=== PATIENT | male | born 1930 | race Caucasian/White ===

== ENCOUNTER 2016-05-08 11:50 | Observation (INO) | payer MEDICARE, OTHER ==
[2016-05-08] VITALS (10 sets, daily range): BP systolic 118–151; BP diastolic 58–89; PULSE 85–108; RESP 15–20; TEMP 98.2–98.7; O2SAT 91–95
[~2016-05-08] VITALS: Ht 182.9 cm; Wt 70.0 kg
[~2016-05-08 11:50] MED LIST: ADVAI250I PO; ATOR40TA PO; CORE6.25 PO; COUM1TAB PO; COUM2.5T PO; DIGO0.12 PO; ECOT81TA2 PO; EFFE150C PO; FURO1TAB93 PO; GLIP5TAB8 PO; LISI5 PO; NITR0.4S SL; OMEP40CA2 PO; POTA1TAB17 PO; TAMS0.4C67 PO; WELL150T PO
[2016-05-08] MEDS ORDERED: SODIUM CHLOR 0.9% 1000 ML INJ 1,000 ML IV SCH ×2 (12:43→16:45)
[2016-05-08] MEDS ORDERED: MORPHINE SULFATE 4 MG/ML INJ IV PUSH ONE (12:45)
--- NOTE | 2016-05-08 13:11 | PD ---
HPI Chief Complaint: Complaint Time Seen by Provider: 13:07 Travel History International Travel<30 days: No Contact w/Intl Traveler<30days: No Traveled to known affect area: No History of Present Illness HPI 86-year-old male that presents to the ED for evaluation of left upper quadrant pain on the abdomen as well as urinary issues. Per patient symptoms started yesterday. Patient is in hospice for unclear reasons. Patient denies any problems like this before. No chest pain or shortness of breath. Per patient she does have a history of CHF. Does not know his taking blood thinners. States that the pain is sharp many on the left upper quadrant. Denies any bowel movement issues and states that he had a bowel movement yesterday. No blood in the urine or the bowel movements. Per patient he has history and polyuria. No history of kidney stones. No allergies to medication. Has not taken anything for this. Denies any fevers chills or sweats. No nausea or vomiting. Nothing makes the pain better or worse. Per patient the pain is 8 out of 10 and is sharp. PFSH Past Medical History Hx Anticoagulant Therapy: Yes Arthritis: Yes (LUMBAR) Blood Disorders: No Depression: Yes Cancer: No Cardiovascular Problems: Yes High Cholesterol: Yes COPD: Yes Diabetes: Yes Patient Takes Glucophage: Yes Endocrine: No Gastrointestinal Disorders: No GERD: Yes Genitourinary: No Hypertension: Yes Immune Disorder: No Musculoskeletal: Yes (ARTHRITIS) Neurologic: No Psychiatric: No Reproductive: No Respiratory: Yes Tetanus Vaccination: Unknown Past Surgical History AICD: Yes Cholecystectomy: Yes Eye Surgery: Yes (BILATERAL CATHERACTS) Other Surgery: Yes (SINUS SURGERY; HEMMROIDS) Social History Alcohol Use: No Tobacco Use: No Substance Use: No Allergies-Medications (Allergen,Severity, Reaction): Coded Allergies: No Known Allergies (Verified , 05/08/16) Reported Meds & Prescriptions Reported Meds & Active Scripts Active Reported Omeprazole 20 Mg Tab 20 Mg PO DAILY Potassium Chloride ER (Potassium Chloride) 10 Meq Tab 10 Meq PO DAILY Lisinopril 5 Mg Tab 2.5 Mg PO DAILY Melatonin 1 Mg Tab 1 Mg PO HS PRN Glipizide 5 Mg Tab 5 Mg PO BID Take 30 minutes before a meal Lasix (Furosemide) 40 Mg Tab 40 Mg PO DAILY Aspirin Adult Low Strength (Aspirin) 81 Mg Tabdr 81 Mg PO DAILY Senna-Plus (Sennosides-Docusate Sodium) 8.6-50 Mg Tab 1 Tab PO BID Coreg (Carvedilol) 6.25 Mg Tab 6.25 Mg PO BID Jantoven (Warfarin) 4 Mg Tab 4 Mg PO SUMOTUWETHFR Take 1 tablet (4mg) daily except on Saturdays Advair Diskus Inh (Fluticasone-Salmeterol Inh) 250-50 Mcg/Blist Aer 1 Puff INH BID Rinse mouth after use. Review of Systems General / Constitutional: No: Fever, Chills, Weight Gain, Weight Loss, Other Eyes: No: Diploplia, Blurred Vision, Photophobia, Drainage, Redness, Foreign Body Sensation, Pain, Tearing, Blind Spots, Visual changes, Blindness, Other HENT: No: Headaches, Vertigo, Lightheadedness, Sore Throat, Rhinitis, Rhinorrhea, Congestion, Nosebleed, Neck Stiffness, Neck Pain, Masses, Gingival Bleeding, Dental Difficulties, Ear Discharge, Earache, Other Cardiovascular: No: Chest Pain or Discomfort, Palpitations, Irregular Rhythm, Tachycardia, Diaphoresis, Syncope, Dyspnea on exertion, Varicosities, Edema, Cyanosis, Varicosities, Phlebitis, Claudication, Other Respiratory: No: Cough, Shortness of Breath, Wheezing, Sneezing, Orthopnea, Hemoptysis, Stridor, Night Sweats, Pleuritic Pain, Other Gastrointestinal: Positive: Abdominal Pain, No: Nausea, Vomiting, Diarrhea, Hematemesis, Hematochezia, Constipation, Changes in Bowel Habits, Indigestion, Dysphagia, Loss of Appetite, Other Genitourinary: Positive: Urgency, Frequency, Dysuria, No: Nocturia, Hematuria , Decreased Urinary Output, Oliguria, Hesitancy, Dribbling, Incontinence, Pelvic Pain, Flank Pain, Dyspareunia, Discharge, Dysmenorrhea, Menorrhagia, Metorrhagia, Vaginal Bleeding, Other Musculoskeletal: No: Myalgias, Arthralgias, Limited ROM, Weakness, Cramping, Edema, Pain, Atrophy, Other Skin: No Rash, No Itching, No Dryness, No Lumps, No Hives, No Change in Pigmentation, No Change in nails, No Alopecia, No Lesions, No Breast Lumps, No Breast Tenderness, No Breast Swelling, No Other Neurologic: No: Weakness, Dizziness, Syncope, Focal Abnormalities, Coordination Problem, Tremor, Ataxia, Headache, Change in Mentation, Slurred Speech, Paresthesia, Incontinence, Seizures, Sensory Disturbance, Other Psychiatric: No: Anxiety, Depression, Suicidal Ideations, Disorder of Thought, Mood Disorder, Substance Abuse, Homicidal Ideation, Other Endocrine: No: Heat Intolerance, Cold Intolerance, Polyuria, Polydipsia, Other Hematologic/Lymphatic: No: Easy Bruising, Lymph Node Enlargement, Other Physical Exam Narrative GENERAL: SKIN: Warm and dry. HEAD: Atraumatic. Normocephalic. EYES: Pupils equal and round. No scleral icterus. No injection or drainage. ENT: No nasal bleeding or discharge. Mucous membranes pink and moist. Tongue is midline. No uvula deviation. NECK: Trachea midline. No JVD. CARDIOVASCULAR: Regular rate and rhythm. No murmurs, S3, S4. RESPIRATORY: No accessory muscle use. Clear to auscultation. Breath sounds equal bilaterally. GASTROINTESTINAL: Abdomen soft, tender with soft and the palpation on the left upper quadrant as well as the left lower quadrant, nondistended. Hepatic and splenic margins not palpable. MUSCULOSKELETAL: Extremities without clubbing, cyanosis, or edema. No obvious deformities. Full range of motion of the upper and lower extremities bilaterally. Pupils pulses bilaterally. NEUROLOGICAL: Awake and alert. No obvious cranial nerve deficits. Motor grossly within normal limits. Five out of 5 muscle strength in the arms and legs. Normal speech. PSYCHIATRIC: Appropriate mood and affect; insight and judgment normal. Data Data Last Documented VS Vital Signs Date Time Temp Pulse Resp B/P Pulse Ox O2 Delivery O2 Flow Rate FiO2 05/08/16 15:00 102 16 141/75 95 Room Air 05/08/16 11:53 98.7 Orders Complete Blood Count With Diff (05/08/16 12:31) Comprehensive Metabolic Panel (05/08/16 12:31) Urinalysis - C+S If Indicated (05/08/16 12:31) Iv Access Insert/Monitor (05/08/16 12:31) Lipase (05/08/16 12:31) Lactic Acid (05/08/16 12:43) Ct Abd/Pel W Iv Contrast(Rout) (05/08/16 12:43) Morphine Inj (Morphine Inj) (05/08/16 12:45) Sodium Chlor 0.9% 1000 Ml Inj (Ns 1000 M (05/08/16 12:43) Chest, Single Ap (05/08/16 ) Cath For Specimen (05/08/16 13:33) Ct Brain W/O Iv Contrast(Rout) (05/08/16 ) Troponin I (05/08/16 13:37) B-Type Natriuretic Peptide (05/08/16 13:37) Iohexol 350 Inj (Omnipaque 350 Inj) (05/08/16 14:18) Urine Culture (05/08/16 13:33) Ceftriaxone Inj (Rocephin Inj) (05/08/16 14:30) Type In Test Nurse Collected (05/08/16 12:50) Diet Diabetic (05/08/16 Dinner) Electrocardiogram (05/08/16 ) Admit Order (Ed Use Only) (05/08/16 16:21) Labs Laboratory Tests Test 05/08/16 05/08/16 05/08/16 12:50 13:33 14:10 White Blood Count 11.8 TH/MM3 Red Blood Count 3.96 MIL/MM3 Hemoglobin 11.4 GM/DL Hematocrit 33.3 % Mean Corpuscular Volume 84.2 FL Mean Corpuscular Hemoglobin 28.7 PG Mean Corpuscular Hemoglobin 34.1 % Concent Red Cell Distribution Width 14.6 % Platelet Count 187 TH/MM3 Mean Platelet Volume 8.4 FL Neutrophils (%) (Auto) 82.3 % Lymphocytes (%) (Auto) 9.3 % Monocytes (%) (Auto) 7.9 % Eosinophils (%) (Auto) 0.3 % Basophils (%) (Auto) 0.2 % Neutrophils # (Auto) 9.7 TH/MM3 Lymphocytes # (Auto) 1.1 TH/MM3 Monocytes # (Auto) 0.9 TH/MM3 Eosinophils # (Auto) 0.0 TH/MM3 Basophils # (Auto) 0.0 TH/MM3 CBC Comment DIFF FINAL Differential Comment Sodium Level 137 MEQ/L Potassium Level 4.2 MEQ/L Chloride Level 101 MEQ/L Carbon Dioxide Level 28.5 MEQ/L Anion Gap 8 MEQ/L Blood Urea Nitrogen 23 MG/DL Creatinine 1.54 MG/DL Estimat Glomerular Filtration 43 ML/MIN Rate Random Glucose 105 MG/DL Calcium Level 8.1 MG/DL Total Bilirubin 0.5 MG/DL Aspartate Amino Transf 39 U/L (AST/SGOT) Alanine Aminotransferase 21 U/L (ALT/SGPT) Alkaline Phosphatase 85 U/L Troponin I 0.10 NG/ML Total Protein 6.5 GM/DL Albumin 2.9 GM/DL Lipase 91 U/L Urine Color YELLOW Urine Turbidity HAZY Urine pH 7.5 Urine Specific [place] 1.023 Urine Protein 30 mg/dL Urine Glucose (UA) NEG mg/dL Urine Ketones NEG mg/dL Urine Occult Blood LARGE Urine Nitrite NEG Urine Bilirubin NEG Urine Urobilinogen LESS THAN 2.0 MG/DL Urine Leukocyte Esterase LARGE Urine RBC /hpf Urine WBC /hpf Urine Squamous Epithelial 1 /hpf Cells Urine Bacteria FEW /hpf Microscopic Urinalysis Comment CULTURE INDICATED Lactic Acid Level 1.5 mmol/L MDM Medical Decision Making Medical Screen Exam Complete: Yes Emergency Medical Condition: Yes Medical Record Reviewed: Yes Interpretation(s) CBC & BMP Diagram 05/08/16 12:50 Troponin elevated at 0.10. Last Impressions Head CT 05/08/16 0000 Signed Impressions: Service Date/Time: April 13:52 - CONCLUSION: No acute disease. Chronic sinus disease. Quinn Ko Jr., MD Chest X-Ray 05/08/16 0000 Signed Impressions: Service Date/Time: April 13:13 - CONCLUSION: Cardiomegaly without acute cardiopulmonary disease. Quinn Ko Jr., MD LFTs WNL UA showed signs of infection CT of the abdomen was negative. lactic acid negative Differential Diagnosis Obstruction versus diverticulitis versus UTI versus polynephritis versus kidney stone is acute on chronic pain versus chronic pain Narrative Course 86-year-old male that presents to the ED for evaluation of left upper quadrant abdominal pain with urinary issues. Patient was properly examined and was found to have signs and symptoms concerning for obstruction versus diverticulitis versus pyelonephritis. Labs and imaging ordered. Labs and imaging showed UTI, elevated troponin, BNP, WBCs. Family was at bedside after patient was moved to a medical bed. Patient was initially seen in the ambulance muñ[facility]. Family reports the patient has been somewhat more somnolent and more confused than usual. They were concern about possible heart issue versus urinary or abdominal. From physical exam and lab work is appears to be more related to the kidney infection. Patient did have an elevated troponin but this at this point feels to be likely chronic. Case was discussed in my attending Dr. Anshu who recommends admission secondary to patient's slight altered mental status as patient is in hospice care both at home. Family prefers this as well. Patient was started on ceftriaxone. Dr Vee consulted and agreed to admission. Procedures EKG Prior to Arrival: No Diagnosis Primary Impression: Altered mental status Qualified Code: R41.0 - Disorientation Additional Impressions: Cystitis Elevated troponin Admitting Information Admitting Physician Requests: Admit Clayton Walsh May 08, 2016 13:11
[2016-05-08 13:14] LABS: AUTOMATED NEUTROPHIL # 9.7 TH/MM3 (1.8-7.7); BASOPHIL % 0.2 % (0.0-2.0); EOSINOPHIL % 0.3 % (0.0-4.0); HEMATOCRIT 33.3 % (39.0-51.0); HEMO FLAGS DIFF FINAL; LYMPH % 9.3 % (9.0-44.0); LYMPHOCYTE # 1.1 TH/MM3 (1.0-4.8); MEAN CELL VOLUME 84.2 FL (80.0-100.0); MEAN CORPUSCULAR HEMOGLOBIN 28.7 PG (27.0-34.0); MEAN CORPUSCULAR HGB CONC 34.1 % (32.0-36.0); MONO % 7.9 % (0.0-8.0); NEUT % 82.3 % (16.0-70.0); PLATELET COUNT 187 TH/MM3 (150-450); RED BLOOD COUNT 3.96 MIL/MM3 (4.50-5.90); RED CELL DISTRIBUTION WIDTH 14.6 % (11.6-17.2); WHITE BLOOD COUNT 11.8 TH/MM3 (4.0-11.0)
[2016-05-08] MEDS ORDERED: POTA10TA2 PO (13:22)
[2016-05-08] MEDS ORDERED: CARV6.25 PO (13:22)
[2016-05-08] MEDS ORDERED: FURO1TAB60 PO (13:22)
[2016-05-08] MEDS ORDERED: OMEP20TA PO (13:22)
[2016-05-08] MEDS ORDERED: ADVA250A INH (13:22)
[2016-05-08] MEDS ORDERED: ASPI1TAB91 PO (13:22)
[2016-05-08] MEDS ORDERED: LISI-519 PO (13:22)
[2016-05-08] MEDS ORDERED: JANT4TAB PO (13:22)
[2016-05-08] MEDS ORDERED: SENN1TAB PO (13:22)
[2016-05-08] MEDS ORDERED: MELA1TAB PO (13:22)
[2016-05-08] MEDS ORDERED: GLIP5TAB8 PO (13:22)
[2016-05-08 13:30] LABS: ALKALINE PHOSPHATASE 85 U/L (45-117); ALT (GPT) 21 U/L (12-78); ANION GAP 8 MEQ/L (5-15); AST (GOT) 39 U/L (15-37); BICARBONATE 28.5 MEQ/L (21.0-32.0); BLOOD UREA NITROGEN 23 MG/DL (7-18); CHLORIDE 101 MEQ/L (98-107); GLOMERULAR FILTRATION RATE 43 ML/MIN (>89); SODIUM (NA) 137 MEQ/L (136-145); TOTAL BILIRUBIN ADULT 0.5 MG/DL (0.2-1.0)
[2016-05-08 13:32] LABS: POTASSIUM 4.2 MEQ/L (3.5-5.1)
--- NOTE | 2016-05-08 13:57 | RADRPT ---
EXAM DATE/TIME: 05/08/2016 13:13 [facility] COMPARISON: CHEST SINGLE AP, January 02, 2015, 16:50. INDICATIONS : Weakness and confusion. MEDICAL HISTORY : Hypertension. Hypercholesterolemia. Chronic obstructive pulmonary disease. Arthritis. Diabetes. SURGICAL HISTORY : Cholecystectomy. Difibrillator. ENCOUNTER: Initial ACUITY: 1 day PAIN SCORE: 0/10 LOCATION: Bilateral chest FINDINGS: 2 portable views of the chest show mild cardiomegaly. Aorta is mildly tortuous. Lungs are clear. No i nfiltrates or effusions. A single lead pacing device overlies the left chest. CONCLUSION: Cardiomegaly without acute cardiopulmonary disease. Quinn Ko Jr., MD on May 08, 2016 at 13:55 Board Certified Radiologist. This report was verified electronically.
[2016-05-08 14:17] LABS: BACTERIA, URINE FEW /hpf; BLOOD, URINE LARGE (NEG); COMMENT (UR) CULTURE INDICATED; CULTURE IF INDICATED CULTURE INDICATED; GLUCOSE,URINE NEG (NEG); KETONE, URINE NEG (NEG); NITRITE,URINE NEG (NEG); PH, URINE 7.5 (5.0-8.5); SQUAMOUS EPITHELIAL CELL URINE 1 /hpf (0-5); URINE COLOR YELLOW (YELLW/STRAW)
[2016-05-08] MEDS ORDERED: IOHEXOL 350 MG/ML 10 ML VIAL (for RAD DIAG) IV ONE (14:18)
--- NOTE | 2016-05-08 14:18 | RADRPT ---
EXAM DATE/TIME: 05/08/2016 13:52 [facility] COMPARISON: CT BRAIN W/O CONTRAST, January 02, 2015, 17:03. INDICATIONS : Altered mental status. RADIATION DOSE: 50.66 CTDIvol (mGy) MEDICAL HISTORY : Cardiovascular disease. Hypertension. Chronic obstructive pulmonary disease.GERD, Diabetes. SURGICAL HISTORY : Cholecystectomy. ENCOUNTER: Initial ACUITY: 1 day PAIN SCALE: 0/10 LOCATION: cranial TECHNIQUE: Multiple contiguous axial images were obtained of the head. Using automated exposure control and adj ustment of the mA and/or kV according to patient size, radiation dose was kept as low as reasonably a chievable to obtain optimal diagnostic quality images. 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 The ventricles are normal for ag e. No evidence of midline shift, mass lesion, hemorrhage or acute infarction. No extra-axial fluid collections are seen. POSTERIOR FOSSA: The cerebellum and brainstem are intact. The 4th ventricle is midline. The cerebellopontine angle i s unremarkable. EXTRACRANIAL: The visualized portion of the orbits is intact. Mucosal thickening is seen involving the bilateral fr ontal sinuses, ethmoid air cells, and maxillary sinuses. Mild mucosal thickening involving the spheno id sinuses. No air-fluid levels. Mastoid air cells are clear. SKULL: The calvaria is intact. No evidence of skull fracture. CONCLUSION: No acute disease. Chronic sinus disease. Quinn Ko Jr., MD on May 08, 2016 at 14:13 Board Certified Radiologist. This report was verified electronically.
[2016-05-08] MEDS ORDERED: cefTRIAXone INJ 1,000 MG in SODIUM CHLORIDE 0.9% INJ 25 ML IV ONE (14:30)
--- NOTE | 2016-05-08 15:02 | RADRPT ---
EXAM DATE/TIME: 05/08/2016 13:57 [facility] COMPARISON: No previous studies available for comparison. INDICATIONS : LUQ abdominal pain with frequent urination. IV CONTRAST: 75 cc Omnipaque 350 (iohexol) IV ORAL CONTRAST: No oral contrast ingested. RADIATION DOSE: 18.37 CTDIvol (mGy) MEDICAL HISTORY : Cardiovascular disease. Hypertension. Chronic obstructive pulmonary disease.GERD, Diabetes. SURGICAL HISTORY : Cholecystectomy. ENCOUNTER: Initial ACUITY: 1 day PAIN SCALE: 6/10 LOCATION: Left upper quadrant Abdomen/pelvis TECHNIQUE: Volumetric scanning of the abdomen and pelvis was performed. Using automated exposure control and ad justment of the mA and/or kV according to patient size, radiation dose was kept as low as reasonably achievable to obtain optimal diagnostic quality images. FINDINGS: LOWER LUNGS: The visualized lower lungs are clear. LIVER: Homogeneous density without lesion. There is no dilation of the biliary tree hemoclips in the kwame from prior cholecystectomy. SPLEEN: Normal size without lesion. PANCREAS: Within normal limits. KIDNEYS: Normal in size and shape. There is no mass, stone or hydronephrosis. ADRENAL GLANDS: Within normal limits. VASCULAR: There is no aortic aneurysm. BOWEL/MESENTERY: No dilated loops of small or large bowel. A few scattered diverticula in the sigmoid colon. ABDOMINAL WALL: Within normal limits. RETROPERITONEUM: There is no lymphadenopathy. BLADDER: Nondistended. Diffuse wall thickening. REPRODUCTIVE: Within normal limits. INGUINAL: There is no lymphadenopathy or hernia. MUSCULOSKELETAL: Prominent degenerative changes lumbar spine. Right lumbar scoliosis. CONCLUSION: 1. No evidence of renal stone or hydronephrosis. 2. No dilated loops of small or large bowel. Quinn Garcia MD on May 08, 2016 at 14:57 Board Certified Radiologist. This report was verified electronically.
[2016-05-08] MEDS ORDERED: MELATONIN 1 MG PO PRN (16:30)
[2016-05-08] MEDS ORDERED: GLUCAGON 1 MG/ML VIAL OTHER PRN (16:45)
[2016-05-08] MEDS ORDERED: BISACODYL 10 MG SUPP PR PRN (16:45)
[2016-05-08] MEDS ORDERED: SODIUM CHLORIDE 0.9% FLUSH 5 ML FLUSH FLUSH PRN (16:45)
[2016-05-08] MEDS ORDERED: MAGNESIUM HYDROXIDE SUSP 30 ML CUP PO PRN (16:45)
[2016-05-08] MEDS ORDERED: SENNOSIDES 8.6 MG TAB PO PRN (16:45)
[2016-05-08] MEDS ORDERED: ACETAMINOPHEN 325 MG TAB PO PRN (16:45)
[2016-05-08] MEDS ORDERED: PROCHLORPERAZINE 25 MG SUPP PR PRN (16:45)
[2016-05-08] MEDS ORDERED: DEXTROSE 50% IN WATER 50 ML VIAL(D50) IV PUSH PRN (16:45)
[2016-05-08] MEDS ORDERED: ONDANSETRON HCL 4 MG/2 ML VIAL IVP PRN (16:45)
[2016-05-08 17:57] LABS: INTERNATIONAL NORMALIZED RATIO 1.3 RATIO; PROTHROMBIN TIME - PATIENT 14.2 SEC (9.8-11.6)
[2016-05-08] MEDS ORDERED: WARFARIN SOD 4 MG TAB PO SCH (18:15)
--- NOTE | 2016-05-08 18:45 | HHI.HP ---
HPI Service [facility] Primary Care Physician No Primary Care Physician Admission Diagnosis ALtered mental status, cystitis Diagnoses: Travel History International Travel<30 Days: No Contact w/Intl Traveler <30 Da: No Traveled to Known Affected Are: No History of Present Illness Very pleasant 86 yo male with extensive PMH as mentioned below. Patient says he was at home under hospice care but he is full code, says for complicated cardiac issues he gets hospice at home . Hospice also came to evaluate the patient. Patient however came to the ED with c/o urinary frequency and chills since yesterday and wants to get treated for UTI. He also complaints of chest pain intermittent nonradiating, says chest pain is more like pressure in his chest associated with sob and also tyrese . He thinks he had a fever yesterday. No palpitations. Says she has lightheadedness but this is a chronic problem. No n/v/d/c. However says he has decreased appetite and was not able to tolerate food. Review of Systems 12 system ROS reviewed and negative except as mentioned in HPI Past Family Social History Past Medical History Systolic congestive heart failure with an left ventricular ejection fraction of 15-20% Depression Hyperlipidemia COPD Diabetes mellitus GERD Hypertension History of nonsustained ventricular tachycardia status post AICD Past Surgical History AICD Cholecystectomy Bilateral cataract surgery Sinus surgery Hemorrhoid surgery Reported Medications Reported Meds & Active Scripts Active Reported Omeprazole 20 Mg Tab 20 Mg PO DAILY Potassium Chloride ER (Potassium Chloride) 10 Meq Tab 10 Meq PO DAILY Lisinopril 5 Mg Tab 2.5 Mg PO DAILY Melatonin 1 Mg Tab 1 Mg PO HS PRN Glipizide 5 Mg Tab 5 Mg PO BID Take 30 minutes before a meal Lasix (Furosemide) 40 Mg Tab 40 Mg PO DAILY Aspirin Adult Low Strength (Aspirin) 81 Mg Tabdr 81 Mg PO DAILY Senna-Plus (Sennosides-Docusate Sodium) 8.6-50 Mg Tab 1 Tab PO BID Coreg (Carvedilol) 6.25 Mg Tab 6.25 Mg PO BID Jantoven (Warfarin) 4 Mg Tab 4 Mg PO SUMOTUWETHFR Take 1 tablet (4mg) daily except on Saturdays Advair Diskus Inh (Fluticasone-Salmeterol Inh) 250-50 Mcg/Blist Aer 1 Puff INH BID Rinse mouth after use. Allergies: Coded Allergies: No Known Allergies (Verified , 05/08/16) Family History Denies family history of strokes. Social History Patient is a former smoker who quit smoking ~ 10 years ago. He states that he also used to smoke cigars. Denies alcohol or illicit drug use and has a daughter who also has some physical impediments and home he helps take care of. Says he had hospice coming to home. Physical Exam Vital Signs Vital Signs Date Time Temp Pulse Resp B/P Pulse Ox O2 Delivery O2 Flow Rate FiO2 05/08/16 16:26 102 15 151/72 94 Room Air 05/08/16 15:00 102 16 141/75 95 Room Air 05/08/16 13:03 93 16 149/67 92 Room Air 05/08/16 13:03 93 16 05/08/16 11:53 98.7 88 19 118/58 94 Physical Exam GENERAL: This is a pleasant 86 yo male, well-nourished, well-developed patient, in no apparent distress. SKIN: No rashes, ecchymoses or lesions. Cool and dry. HEAD: Atraumatic. Normocephalic. No temporal or scalp tenderness. EYES: Pupils equal round and reactive. Extraocular motions intact. No scleral icterus. No injection or drainage. ENT: Nose without bleeding, purulent drainage or septal hematoma. Throat without erythema, tonsillar hypertrophy or exudate. Uvula midline. Airway patent. NECK: Trachea midline. No JVD or lymphadenopathy. Supple, nontender, no meningeal signs. CARDIOVASCULAR: Regular rate and rhythm without murmurs, gallops, or rubs. RESPIRATORY: Decreased breath sounds. No wheezes, rales, or rhonchi. GASTROINTESTINAL: Abdomen soft, non-tender, nondistended. No hepato-splenomegaly , or palpable masses. No guarding. MUSCULOSKELETAL: Extremities without clubbing, cyanosis, or edema. No joint tenderness, effusion, or edema noted. No calf tenderness. Negative Homans sign bilaterally. NEUROLOGICAL: Awake and alert. Cranial nerves II through XII intact. Motor and sensory grossly within normal limits. Five out of 5 muscle strength in all muscle groups. Normal speech. Laboratory Laboratory Tests Test 05/08/16 05/08/16 05/08/16 05/08/16 12:50 13:33 14:10 15:14 White Blood Count 11.8 Red Blood Count 3.96 Hemoglobin 11.4 Hematocrit 33.3 Mean Corpuscular Volume 84.2 Mean Corpuscular Hemoglobin 28.7 Mean Corpuscular Hemoglobin 34.1 Concent Red Cell Distribution Width 14.6 Platelet Count 187 Mean Platelet Volume 8.4 Neutrophils (%) (Auto) 82.3 Lymphocytes (%) (Auto) 9.3 Monocytes (%) (Auto) 7.9 Eosinophils (%) (Auto) 0.3 Basophils (%) (Auto) 0.2 Neutrophils # (Auto) 9.7 Lymphocytes # (Auto) 1.1 Monocytes # (Auto) 0.9 Eosinophils # (Auto) 0.0 Basophils # (Auto) 0.0 CBC Comment DIFF FINAL Differential Comment Sodium Level 137 Potassium Level 4.2 Chloride Level 101 Carbon Dioxide Level 28.5 Anion Gap 8 Blood Urea Nitrogen 23 Creatinine 1.54 Estimat Glomerular Filtration 43 Rate Random Glucose 105 Calcium Level 8.1 Total Bilirubin 0.5 Aspartate Amino Transf 39 (AST/SGOT) Alanine Aminotransferase 21 (ALT/SGPT) Alkaline Phosphatase 85 Troponin I 0.10 Total Protein 6.5 Albumin 2.9 Lipase 91 Urine Color YELLOW Urine Turbidity HAZY Urine pH 7.5 Urine Specific [place] 1.023 Urine Protein 30 Urine Glucose (UA) NEG Urine Ketones NEG Urine Occult Blood LARGE Urine Nitrite NEG Urine Bilirubin NEG Urine Urobilinogen LESS THAN 2.0 Urine Leukocyte Esterase LARGE Urine RBC Urine WBC Urine Squamous Epithelial 1 Cells Urine Bacteria FEW Microscopic Urinalysis Comment CULTURE INDICATED Lactic Acid Level 1.5 B-Type Natriuretic Peptide 266 Test 05/08/16 17:30 Prothrombin Time 14.2 Prothromb Time International 1.3 Ratio Troponin I 0.11 Date/Time Procedure Status Source Growth 05/08/16 13:33 Urine Culture Received Urine Clean Catch Pending Result Diagram: 05/08/16 1250 05/08/16 1250 Assessment and Plan Assessment and Plan Cardiac enzymes elevated Chest pain Ischemic cardiomyopathy Might have stable angina. Trend cardiac enzymes and obtain serial EKGs. EKG reviewed also discussed with ER physician, no change form previous EKG. Patient is chest pain-free at this time Seems to be stable, patient is on MARGARETH inhibitor and beta blockers, ASA will continue home meds. Follows with Dr Meneses cardiology. Will consult cardio Dr Meneses UTI UA reviewed. Start rocephin IV. Monitor urine cultures No signs of sepsis. Diabetes mellitus Diabetes seems to be very well controlled. Hold glipizide while the patient was hospitalized and placed on a sliding scale with insulin NovoLog. Atrial fibrillation Seems to be paroxysmal. The patient is sinus rhythm now. Continue beta eagle Status post AICD. Might consider AICD interrogation if changes . Hypertension MCB stable. Continue lisinopril, Coreg for blood pressure control. Hyperlipidemia Continue statin COPD (chronic obstructive pulmonary disease) Seems to be stable. Patient is on Advair which I will continue. Depression On venlafaxine and bupropion. 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 Patient baseline Cr of 1.2. Continue to monitor BUN/creatinine. I will give gentle amount of IV normal saline. Strict I's and O's, avoid nephrotoxic agents. Code Status full Discussed Condition With patient. nurse, ED physician Amira Vee MD May 08, 2016 18:45
[2016-05-08] MEDS: INSULIN ASPART SUPPLEMENTAL SCALE SQ SCH (21:00)
[2016-05-08] MEDS: ENOXAPARIN SODIUM 80 MG/0.8 ML SYRINGE SQ SCH (21:21)
[2016-05-08] MEDS: SODIUM CHLORIDE 0.9% FLUSH 5 ML FLUSH FLUSH SCH (21:21)
[2016-05-08] MEDS: BUDESONIDE-FORMOTEROL 160/4.5 MCG INHALER INH SCH (21:21)
[2016-05-08] MEDS: DOCUSATE SODIUM 50 MG/SENNA 8.6 MG TAB PO SCH (21:22)
[2016-05-08] MEDS: CARVEDILOL 6.25 MG TAB PO SCH (21:22)
[2016-05-09 03:53] VITALS: BP 152/95; PULSE 95; RESP 20; TEMP 98.4; O2SAT 95
[2016-05-09] MEDS ORDERED: ALUMINUM/MAGNESIUM/SIMETH 30 ML CUP PO ONE (04:30)
[2016-05-09] MEDS: INSULIN ASPART SUPPLEMENTAL SCALE SQ SCH ×2 (06:34→11:00)
[2016-05-09 07:20] VITALS: BP 131/83; PULSE 95; RESP 18; TEMP 98.1; O2SAT 95
[2016-05-09 07:46] LABS: INTERNATIONAL NORMALIZED RATIO 1.3 RATIO
[2016-05-09 07:55] LABS: AUTOMATED NEUTROPHIL # 7.8 TH/MM3 (1.8-7.7); BASOPHIL % 0.3 % (0.0-2.0); EOSINOPHIL % 0.1 % (0.0-4.0); HEMATOCRIT 33.8 % (39.0-51.0); HEMO FLAGS DIFF FINAL; LYMPH % 14.3 % (9.0-44.0); LYMPHOCYTE # 1.5 TH/MM3 (1.0-4.8); MEAN CELL VOLUME 82.5 FL (80.0-100.0); MEAN CORPUSCULAR HEMOGLOBIN 28.2 PG (27.0-34.0); MEAN CORPUSCULAR HGB CONC 34.1 % (32.0-36.0); MONO % 8.8 % (0.0-8.0); NEUT % 76.5 % (16.0-70.0); PLATELET COUNT 158 TH/MM3 (150-450); RED CELL DISTRIBUTION WIDTH 14.6 % (11.6-17.2); WHITE BLOOD COUNT 10.2 TH/MM3 (4.0-11.0)
[2016-05-09] MEDS: CARVEDILOL 6.25 MG TAB PO SCH (07:59)
[2016-05-09] MEDS: ENOXAPARIN SODIUM 80 MG/0.8 ML SYRINGE SQ SCH (07:59)
[2016-05-09] MEDS: BUDESONIDE-FORMOTEROL 160/4.5 MCG INHALER INH SCH (08:00)
[2016-05-09] MEDS: SODIUM CHLORIDE 0.9% FLUSH 5 ML FLUSH FLUSH SCH (08:00)
[2016-05-09] MEDS: DOCUSATE SODIUM 50 MG/SENNA 8.6 MG TAB PO SCH (08:00)
[2016-05-09 08:02] LABS: BICARBONATE 26.2 MEQ/L (21.0-32.0); POTASSIUM 3.6 MEQ/L (3.5-5.1)
[2016-05-09] MEDS ORDERED: oxyCODONE/ACETAMINOPHEN 10 MG/325 MG TAB PO PRN (08:15)
[2016-05-09] MEDS ORDERED: oxyCODONE/ACETAMINOPHEN 5 MG/325 MG TAB PO PRN (08:15)
[2016-05-09] MEDS ORDERED: methylPREDNISolone SOD SUCC 40 MG/1 ML VIAL IV PUSH ONE (08:15)
[2016-05-09] MEDS ORDERED: POTASSIUM CHLORIDE 10 MEQ CONTROLLED RELEASE TAB PO ONE (08:15)
[2016-05-09] MEDS ORDERED: MORPHINE SULFATE 4 MG/ML INJ IV PRN ×3 (08:15)
[2016-05-09] MEDS ORDERED: NALOXONE HCL 0.4 MG/ML AMP IV PRN (08:15)
[2016-05-09] MEDS ORDERED: FUROSEMIDE 20 MG/2 ML VIAL IV PUSH ONE (08:15)
[2016-05-09] MEDS ORDERED: RESP: ALBUTEROL 2.5 MG/IPRATROPIUM 0.5 MG NEB (PRN) NEB (08:15)
--- NOTE | 2016-05-09 08:17 | HHI.PR ---
Subjective Remarks Patient with sob, barely can talk due to sob. He also complains of pain . Says he is with hospice at home and he gets hydrocodones daily. Patient also complaints of chest pressure. No n/v/d/c. Objective Vitals Vital Signs Date Time Temp Pulse Resp B/P Pulse Ox O2 Delivery O2 Flow Rate FiO2 05/09/16 07:20 98.1 95 18 131/83 95 05/09/16 03:53 98.4 95 20 152/95 95 05/08/16 23:38 98.2 101 19 134/82 94 05/08/16 21:20 85 05/08/16 21:05 98.3 96 20 120/69 91 05/08/16 20:00 95 05/08/16 19:22 99 05/08/16 18:45 108 16 145/89 94 Room Air 05/08/16 16:26 102 15 151/72 94 Room Air 05/08/16 15:00 102 16 141/75 95 Room Air 05/08/16 13:03 93 16 149/67 92 Room Air 05/08/16 13:03 93 16 05/08/16 11:53 98.7 88 19 118/58 94 I/O 05/08/16 05/08/16 05/08/16 05/09/16 05/09/16 05/09/16 07:00 15:00 23:00 07:00 15:00 23:00 Intake Total 250 ml Output Total 200 ml Balance -200 ml 250 ml Intake IV Total 250 ml Output Urine Total 200 ml Result Diagram: 05/09/1618 05/09/16 0718 Imaging Last Impressions Abdomen/Pelvis CT 05/08/16 1243 Signed Impressions: Service Date/Time: April 13:57 - CONCLUSION: 1. No evidence of renal stone or hydronephrosis. 2. No dilated loops of small or large bowel. Quinn Garcia MD Head CT 05/08/16 0000 Signed Impressions: Service Date/Time: April 13:52 - CONCLUSION: No acute disease. Chronic sinus disease. Quinn Ko Jr., MD Chest X-Ray 05/08/16 0000 Signed Impressions: Service Date/Time: April 13:13 - CONCLUSION: Cardiomegaly without acute cardiopulmonary disease. Quinn Ko Jr., MD Objective Remarks GENERAL: This is a pleasant 86 yo male, well-nourished, well-developed patient, in no apparent distress. SKIN: No rashes, ecchymoses or lesions. Cool and dry. HEAD: Atraumatic. Normocephalic. No temporal or scalp tenderness. EYES: Pupils equal round and reactive. Extraocular motions intact. No scleral icterus. No injection or drainage. ENT: Nose without bleeding, purulent drainage or septal hematoma. Throat without erythema, tonsillar hypertrophy or exudate. Uvula midline. Airway patent. NECK: Trachea midline. No JVD or lymphadenopathy. Supple, nontender, no meningeal signs. CARDIOVASCULAR: Regular rate and rhythm without murmurs, gallops, or rubs. RESPIRATORY: Decreased breath sounds. Crackles bibasilar. No wheezes, rales, or rhonchi. GASTROINTESTINAL: Abdomen soft, non-tender, nondistended. No hepato-splenomegaly , or palpable masses. No guarding. MUSCULOSKELETAL: Extremities without clubbing, cyanosis, or edema. No joint tenderness, effusion, or edema noted. No calf tenderness. Negative Homans sign bilaterally. NEUROLOGICAL: Awake and alert. Cranial nerves II through XII intact. Motor and sensory grossly within normal limits. Five out of 5 muscle strength in all muscle groups. Normal speech. A/P Assessment and Plan Cardiac enzymes elevated Chest pain Ischemic cardiomyopathy Might have stable angina. Trend cardiac enzymes and obtain serial EKGs. EKG reviewed also discussed with ER physician, no change form previous EKG. Patient is chest pain-free at this time Seems to be stable, patient is on MARGARETH inhibitor and beta blockers, ASA will continue home meds. Follows with Dr Meneses cardiology. Will consult cardio Dr Meneses Acute respiratory failure 2/2 fluid overload. Stop gentle IVF. Give one dose of IV lasix 20 mg, solumedrol and duonebs. Repeat CXR UTI UA reviewed. Start rocephin IV. Monitor urine cultures No signs of sepsis. Diabetes mellitus Diabetes seems to be very well controlled. Hold glipizide while the patient was hospitalized and placed on a sliding scale with insulin NovoLog. Atrial fibrillation Subtherapeutic INR 1.3 on admission. Monitor INR . Will give lovenox until therapeutic INR Afib seems to be paroxysmal. Continue beta eagle Status post AICD. Might consider AICD interrogation if changes. Hypertension MCB stable. Continue lisinopril, Coreg for blood pressure control. Hyperlipidemia Continue statin COPD (chronic obstructive pulmonary disease) Seems to be stable. Patient is on Advair which I will continue. Depression On venlafaxine and bupropion. 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 Patient baseline Cr of 1.2. Continue to monitor BUN/creatinine. I will give gentle amount of IV normal saline. Strict I's and O's, avoid nephrotoxic agents. Code Status full Discussed Condition With patient, nurse Discussed with Krystle from Hospice. Discharge Planning Evaluated by hospice. Patient decided to go to inpatient hospice. DC to inpatient hospice in deteriorating condition. Diet healthy heart and ADA Activity ad reza as tolerated Meds per med reconciliations Follow up with hospice Amira Vee MD May 09, 2016 08:17
[2016-05-09 08:46] VITALS: PULSE 93
[2016-05-09] MEDS: CALCIUM CARBONATE 500 MG CHEWABLE TAB CHEW ONE ×2 (09:00→11:30)
[2016-05-09] MEDS ORDERED: PANTOPRAZOLE SOD 20 MG DELAYED RELEASE TAB PO SCH (09:00)
[2016-05-09] MEDS ORDERED: ASPIRIN EC 81 MG TABEC PO SCH (09:00)
--- NOTE | 2016-05-09 09:40 | RADRPT ---
EXAM DATE/TIME: 05/09/2016 09:13 [facility] COMPARISON: CT ABDOMEN & PELVIS W CONTRAST, May 08, 2016, 13:57. CHEST SINGLE AP, May 08, 2016, 13:13. INDICATIONS : Shortness of breath, fever. MEDICAL HISTORY : Hypertension. Hypercholesterolemia. Chronic obstructive pulmonary disease. SURGICAL HISTORY : Pacemaker. Cholecystectomy. ENCOUNTER: Subsequent ACUITY: 1 week PAIN SCORE: 3/10 LOCATION: Bilateral lower chest FINDINGS: Pacemaker device is noted with control pack over the left chest. Lungs are focally clear. No signific ant effusion is suspected. Heart is mildly enlarged. Mild degenerative changes are present in the spi ne. CONCLUSION: No acute disease Chriss Damian MD on May 09, 2016 at 9:26 Board Certified Radiologist. This report was verified electronically.
[2016-05-09 11:57] VITALS: BP 102/56; PULSE 77; RESP 18; TEMP 97.4; O2SAT 96
[2016-05-09] MEDS ORDERED: cefTRIAXone INJ 1,000 MG in SODIUM CHLORIDE 0.9% INJ 100 ML IV SCH (14:00)
--- NOTE | 2016-05-09 15:14 | MB ---
cc: SARAH WILLIAMSON M.D. DATE OF CONSULTATION: 05/09/2016 REASON FOR CONSULTATION Chest pain. HISTORY OF PRESENT ILLNESS The patient is an 86-year-old white male, followed in our office by Dr. Mike Mensees, with a history of coronary artery disease, severe ischemic cardiomyopathy, diabetes, hypertension, paroxysmal atrial fibrillation, ventricular tachyarrhythmia status post AICD implant 2012, who initially presented to the hospital with complaints of abdominal discomfort. The patient states about a week ago he had an episode of fairly sharp left inframammary chest pain lasting about two hours in a constant fashion without associated nausea, diaphoresis or shortness of breath. The patient denies dyspnea, pedal edema, paroxysmal nocturnal dyspnea, palpitations, dizziness, syncope, AICD shocks. He reports compliance with his medications. Today he states he feels "back to normal." For the most part he has been sedentary. Apparently he has been under Hospice care. PAST MEDICAL HISTORY 1. Coronary artery disease status post stent of the mid-LAD by Dr. Cody Palumbo August 2012 using a 3.0 mm Resolute stent. 2. Severe ischemic cardiomyopathy with ejection fraction of 15-20% demonstrated by echo 02/17/2014. 3. History of ventricular tachyarrhythmia status post AICD implant (single chamber with atrial sensing capability) 08/30/2012. 4. Diabetes. 5. Hypertension 6. Paroxysmal atrial fibrillation. MEDICATIONS His cardiac medications at home: 1. Warfarin 4 mg q. daily except for Saturdays. 2. Carvedilol 6.25 mg b.i.d. 3. Aspirin 81 mg q. daily. 4. Furosemide 40 mg q. daily. 5. Lisinopril 2.5 mg q. daily. 6. Potassium chloride 10 mEq q. daily. ALLERGIES No known drug allergies. FAMILY HISTORY Noncontributory. SOCIAL HISTORY The patient is a nonsmoker. There is no history of alcohol abuse. REVIEW OF SYSTEMS As in the history of present illness, otherwise negative or noncontributory. He also denies headache, abdominal pain, melena, dyspepsia, bright red blood per rectum, cough, fevers, nausea. PHYSICAL EXAMINATION VITAL SIGNS: On physical examination his blood pressure is 102/56 with a pulse of 77, respirations 18. GENERAL: In general he is a well-developed, well-nourished white male in no acute distress. HEENT/NECK: Jugular venous pressure is normal. Carotid pulses are 2+ bilaterally and without bruits. CHEST: Examination of the chest reveals clear lung ramirez. CARDIAC: On cardiac examination he has a regular rhythm and rate without S3, S4 or murmur. ABDOMEN: On abdominal examination he has a soft, nontender abdomen. Bowel sounds are present. There is no definite hepatosplenomegaly. EXTREMITIES: Examination of the extremities reveals no clubbing, cyanosis or edema. LABORATORY Laboratory data includes WBC 10.2, hemoglobin 11.5, platelets 158, potassium 3.6, BUN 17, creatinine 1.14, troponin 0.12, INR 1.3. IMAGING Chest x-ray shows no acute disease. EKG EKG shows sinus tachycardia, left bundle-branch block, nonspecific ST abnormalities. IMPRESSION Overall atypical chest pain in this 86-year-old white male with a history of coronary artery disease status post stent to the LAD in 2012, severe ischemic cardiomyopathy with ejection fraction of 15-20%, history of AICD implant, diabetes, hypertension, paroxysmal atrial fibrillation. The patient is a somewhat vague historian. The chest pain he describes to me occurred about a week ago. He repeatedly denies any further chest discomfort. His troponin levels are only slightly abnormal. EKG is nondiagnostic due to left bundle-branch block. There is no definite evidence for congestive heart failure. He is currently under Hospice care. RECOMMENDATIONS 1. In light of his sedentary lifestyle, overall poor functional status, would recommend conservative therapy and evaluation. He can be discharged home today from a cardiac standpoint. He does have follow-up with Dr. Mike Meneses next week. I did ask the patient to return to the hospital if he has recurrent chest discomforts. 2. Outpatient monitoring of his warfarin to achieve a therapeutic INR. MD BENJI Pittman/REVA /2:35 PM /3:05 PM JOANNA
--- NOTE | 2016-05-09 15:46 | OTSOAPIP ---
TIME SESSION COMPLETED: AM/PM TREATMENT TIME: 0 MINS. CHART REVIEWED. ATTEMPTED TO SEE PATIENT X2, PATIENT WAS NOT AVAILABLE PLAN: WILL SEE PATIENT NEXT TREATMENT DAY Therapist: ENZO MARIE/Holden Signature on file
[2016-05-09] MEDS ORDERED: WARFARIN SOD 4 MG TAB PO SCH (16:00)
--- NOTE | 2016-05-09 16:49 | EKG ---
Date Performed: 05/08/2016 Time Performed: 16:20:05 PTAGE: 86 years EKG: SINUS TACHYCARDIA WITH OCCASIONAL VENTRICULAR PREMATURE COMPLEXES MARKED LEFT AXIS DEVIATIO N LEFT BUNDLE BRANCH BLOCK ABNORMAL ECG PREVIOUS TRACING : 01/03/2015 15.20 Compared to previous tracing, the patient is now tachycardi c. DOCTOR: Alyssa Overton Interpretating Date/Time 05/09/2016 16:47:33
== END 2016-05-09 18:18 | disposition home or self-care (01) ==
LOC: NEPE 11:50 → NEDA 16:23 → INTOOBSV 16:23 → NEPHCDU 20:56 → UNDODISIN 05-09 18:18
PROVIDERS: ADMIT Hospitalist; ATTEND Hospitalist
DX: N30.90 Cystitis, unspecified without hematuria (principal); R41.0 Disorientation, unspecified; R74.8 Abnormal levels of other serum enzymes; R35.0 Frequency of micturition; Z79.01 Long term (current) use of anticoagulants; E78.00 Pure hypercholesterolemia, unspecified; J44.9 Chronic obstructive pulmonary disease, unspecified; E11.22 Type 2 diabetes mellitus with diabetic chronic kidney disease; K21.9 Gastro-esophageal reflux disease without esophagitis; I13.0 Hypertensive heart and chronic kidney disease with heart failure and stage 1 through stage 4 chronic kidney disease, or unspecified chronic kidney disease; Z79.899 Other long term (current) drug therapy; Z79.84 Long term (current) use of oral hypoglycemic drugs; R42 Dizziness and giddiness; R63.0 Anorexia; E78.5 Hyperlipidemia, unspecified; I47.2 Ventricular tachycardia; Z87.891 Personal history of nicotine dependence; I25.5 Ischemic cardiomyopathy; I48.0 Paroxysmal atrial fibrillation; Z95.5 Presence of coronary angioplasty implant and graft; Z95.810 Presence of automatic (implantable) cardiac defibrillator; I44.7 Left bundle-branch block, unspecified; B96.4 Proteus (mirabilis) (morganii) as the cause of diseases classified elsewhere
CPT/HCPCS: 70450; 71010; 71020; 74177; 80048; 80053; 81001; 82948; 83605; 83690; 83880; 84484; 85025; 85610; 87077; 87086; 87186; 93005; 96361; 96365; 96375; 97163; 99285; G0378; J0696; J1650; J1940; J2270; J2920; J7030; P9612; Q9967